=== PATIENT | male | born 1975 | race Caucasian/White ===

== ENCOUNTER 2021-01-02 11:07 | Emergency (ER) | payer MEDICARE, MEDICAID ==
[~2021-01-02] VITALS: Ht 167.6 cm; Wt 90.9 kg
[~2021-01-02 11:07] MED LIST: ACET-890 PO; CHLO500C10 PO; CLA10T PO; DIVA-74 PO; HCTZ25T PO; LEVE500T12 PO; MAGN296S70 PO; PHEN30TA41 PO; POLY17PO10 PO; QUET-1 PO; VENL-190 PO
[2021-01-02 11:36] VITALS: BP 119/80
== END 2021-01-02 15:47 | disposition home or self-care (01) ==
LOC: ER 11:08
DX: K59.00 Constipation, unspecified (principal); Z88.2 Allergy status to sulfonamides; Z79.899 Other long term (current) drug therapy
CPT/HCPCS: 74018; 99283

== ENCOUNTER 2021-04-28 18:07 | Emergency (ER) | payer MEDICARE, MEDICAID ==
[~2021-04-28] VITALS: Ht 167.6 cm; Wt 88.0 kg
[2021-04-28] MEDS ORDERED: iohexol 300mg/ml 100ml inj. ONE (20:01)
[2021-04-28 20:56] LABS: BASOPHILS % (AUTO) 0.5 % (0-1); EOSINOPHILS # (AUTO) 0.1 X10'3 (0-0.9); EOSINOPHILS % (AUTO) 1.8 % (0-6); HEMATOCRIT 41.8 % (42.0-52.0); HEMOGLOBIN 14.7 g/dl (14.0-17.9); LYMPHOCYTES # (AUTO) 2.2 X10'3 (1.1-4.8); LYMPHOCYTES % (AUTO) 38.8 % (21-51); MEAN CORPUSCULAR HEMOGLOBIN 32.8 PG (27.0-31.0); MEAN CORPUSCULAR HGB CONC 35.3 g/dL (33.0-36.5); MEAN CORPUSCULAR VOLUME 92.9 FL (78-98); MEAN PLATELET VOLUME 7.4 FL (7.4-10.4); MONOCYTES # (AUTO) 0.4 X10'3 (0-0.9); MONOCYTES % (AUTO) 7.9 % (2-12); NEUTROPHILS # (AUTO) 2.9 X10'3 (1.8-7.7); PLATELET COUNT 128 X10'3 (140-440); RED CELL DISTRIBUTION WIDTH 13.9 % (11.5-14.5); WHITE BLOOD COUNT 5.6 X10'3 (4.5-11.0)
[2021-04-28 21:10] LABS: ALANINE AMINOTRANSFERASE 13 U/L (12-78); ALBUMIN 2.7 G/DL (3.4-5.0); ALKALINE PHOSPHATASE 39 IU/L (46-116); ANION GAP 4 (8-16); ASPARTATE AMINO TRANSFERASE 10 U/L (10-37); BILIRUBIN,TOTAL 0.2 MG/DL (0.1-1.0); BLOOD UREA NITROGEN 12 MG/DL (7-18); BUN/CREATININE RATIO 17.9 (5.4-32.0); CALCIUM 7.7 MG/DL (8.5-10.1); CHLORIDE 99 MMOL/L (99-107); CREATININE 0.67 MG/DL (0.60-1.10); GLUCOSE 89 MG/DL (70-104); POTASSIUM 3.6 MMOL/L (3.5-5.1); SODIUM 134 MMOL/L (135-145); TOTAL CARBON DIOXIDE 31.5 MMOL/L (24-32); TOTAL PROTEIN 5.4 G/DL (6.4-8.2); eGFR > 90 ML/MIN
[2021-04-28 21:19] LABS: CLARITY,URINE CLEAR (Clear); COLOR,URINE YELLOW (Yellow); GLUCOSE, URINE NEGATIVE (Neg); KETONES,URINE NEGATIVE (Neg); LEUKOCYTE ESTERASE ,URINE NEGATIVE (Neg); NITRITES, URINE NEGATIVE (Neg); OCCULT BLOOD,URINE NEGATIVE (Neg); PH,URINE 7.5 (4.8-8.0); PROTEIN,URINE NEGATIVE (Neg); UROBILINOGEN,URINE 0.2 E.U/dL (0.2-1.0)
[2021-04-28 21:20] LABS: UA COLLECTION TYPE STRAIGHT CATH
[2021-04-28 22:06] VITALS: BP 103/83
== END 2021-04-28 22:08 | disposition home or self-care (01) ==
LOC: ER 18:08
DX: K59.00 Constipation, unspecified (principal); R26.89 Other abnormalities of gait and mobility; R62.50 Unspecified lack of expected normal physiological development in childhood; G43.909 Migraine, unspecified, not intractable, without status migrainosus; Z79.2 Long term (current) use of antibiotics; Z79.899 Other long term (current) drug therapy; Z88.2 Allergy status to sulfonamides
CPT/HCPCS: 36415; 74177; 80053; 81003; 85025; 99285; Q9967

== ENCOUNTER 2022-07-02 10:56 | Emergency (ER) | payer MEDICARE, MEDICAID ==
[~2022-07-02] VITALS: Ht 165.1 cm; Wt 98.2 kg
[~2022-07-02 10:56] MED LIST changes: -PHEN30TA41 PO; +PHEN30TA49 PO
[2022-07-02 10:59] VITALS: BP 141/90
== END 2022-07-02 14:27 | disposition home or self-care (01) ==
LOC: ER 10:56
DX: R63.5 Abnormal weight gain (principal); Z88.2 Allergy status to sulfonamides
CPT/HCPCS: 99282

== ENCOUNTER 2023-12-22 09:14 | Inpatient (IN) | payer MEDICARE, MEDICAID ==
[~2023-12-22] VITALS: Ht 167.6 cm; Wt 96.5 kg
[~2023-12-22 09:14] MED LIST changes: -MAGN296S70 PO; +MAGN296S89 PO
[2023-12-22 09:47] LABS: BASOPHILS % (AUTO) 0.2 % (0-1); EOSINOPHILS % (AUTO) 0.1 % (0-6); HEMOGLOBIN 16.9 g/dl (14.0-17.9); LYMPHOCYTES # (AUTO) 0.4 X10'3 (1.1-4.8); LYMPHOCYTES % (AUTO) 1.8 % (21-51); MEAN CORPUSCULAR HEMOGLOBIN 31.6 PG (27.0-31.0); MEAN CORPUSCULAR HGB CONC 35.2 g/dL (33.0-36.5); MEAN CORPUSCULAR VOLUME 89.9 FL (78-98); MEAN PLATELET VOLUME 6.9 FL (7.4-10.4); MONOCYTES # (AUTO) 2.3 X10'3 (0-0.9); MONOCYTES % (AUTO) 9.8 % (2-12); NEUTROPHILS # (AUTO) 20.4 X10'3 (1.8-7.7); NEUTROPHILS % (AUTO) 88.1 % (42-75); PLATELET COUNT 208 X10'3 (140-440); RED BLOOD COUNT 5.34 X10'6 (4.70-6.10); WHITE BLOOD COUNT 23.1 X10'3 (4.5-11.0)
[2023-12-22] MEDS: normal saline 1000ML IV soln IV ONE ×2 (09:55→16:11)
[2023-12-22 11:31] LABS: ALANINE AMINOTRANSFERASE 14 U/L (12-78); ALBUMIN 3.6 G/DL (3.4-5.0); ALBUMIN/GLOBULIN RATIO 0.9 (1.1-1.5); ALKALINE PHOSPHATASE 58 IU/L (46-116); ANION GAP 14 (8-16); ASPARTATE AMINO TRANSFERASE 9 U/L (10-37); BILIRUBIN,TOTAL 0.3 MG/DL (0.1-1.0); BLOOD UREA NITROGEN 12 MG/DL (7-18); BUN/CREATININE RATIO 13.2 (10.0-20.0); CALCIUM 8.8 MG/DL (8.5-10.1); CHLORIDE 100 MMOL/L (99-107); CREATININE 0.91 MG/DL (0.60-1.10); GLUCOSE 145 MG/DL (70-104); PRO BRAIN NATRIURETIC PEPTIDE 220 PG/ML (0-125); SODIUM 135 MMOL/L (135-145); TOTAL CARBON DIOXIDE 20.8 MMOL/L (24-32); TOTAL PROTEIN 7.6 G/DL (6.4-8.2); eCRCL 89 ML/MIN; eGFR 89 ML/MIN
[2023-12-22 11:44] LABS: POTASSIUM 2.9 MMOL/L (3.5-5.1)
[2023-12-22] MEDS: OLANZapine 5mg rapidly disint. tablet PO ONE (13:04)
[2023-12-22] MEDS ORDERED: acetaminophen 325mg tablet PO PRN (13:15)
[2023-12-22] MEDS ORDERED: ondansetron/PF 4mg/2ml inj IV PRN (13:15)
[2023-12-22] MEDS ORDERED: magnesium Cl slow-release 64mg tablet PO PRN (13:15)
[2023-12-22] MEDS ORDERED: magnesium 4gm in 100ml NS 100 ML IV PRN (13:15)
[2023-12-22] MEDS ORDERED: magnesium 2GM in 50ml NS 50 ML IV PRN (13:15)
[2023-12-22] MEDS ORDERED: potassium Cl 20 mEq SR tablet PO PRN ×2 (13:15)
[2023-12-22 13:26] LABS: APTT 30 SECONDS (22-32); INR 1.1 INR; PROTHROMBIN TIME 11.4 SECONDS (9.0-12.0)
[2023-12-22] MEDS: quetiapine 100mg tablet PO ONE (13:50)
[2023-12-22] MEDS ORDERED: Potassium Cl inj 20 MEQ in normal saline 1000ml 990 ML IV SCH (13:50)
[2023-12-22] MEDS: CefTRIAXone 2gm/D5W 50ml BAG 50 ML IV ONE (15:59)
[2023-12-22] MEDS: potassium CL 10mEq/100ml bag 100 ML IV ONE (16:04)
[2023-12-22] MEDS: magnesium oxide 400mg tablet PO ONE (16:21)
[2023-12-22] MEDS: potassium Cl 20 mEq SR tablet PO ONE (16:21)
[2023-12-22] MEDS ORDERED: POTA-192 PO (16:41)
[2023-12-22] MEDS ORDERED: DIVA-76 PO (16:41)
[2023-12-22] MEDS ORDERED: MAGN400O6 PO (16:41)
[2023-12-22] MEDS ORDERED: LACT1CAP65 PO (16:41)
[2023-12-22] MEDS ORDERED: FURO-150 PO (16:41)
[2023-12-22] MEDS ORDERED: QUET-1 PO ×2 (16:41)
[2023-12-22] MEDS ORDERED: DOCU-395 PO (16:41)
[2023-12-22] MEDS ORDERED: DIVA125T31 PO (16:41)
[2023-12-22] MEDS: CefTRIAXone/D5W-Rocephin 1gm 50 ML IV ONE (17:37)
[2023-12-22] MEDS: azithromycin/NS 500mg/250ml 250 ML IV ONE (18:09)
[2023-12-22] MEDS: acetaminophen 325mg tablet PO SCH (18:34)
[2023-12-22 19:32] VITALS: BP 135/78; PULSE 86; RESP 20; TEMP 96.6; O2SAT 96
[2023-12-22] MEDS: cefepime 1GM/NS ADD-VANTAGE 100 ML IV SCH (20:00)
[2023-12-22] MEDS: magnesium 2GM in 50ml NS 50 ML IV ONE (21:08)
[2023-12-22] MEDS: enoxaparin 40mg/0.4ml syringe SQ SCH (21:08)
[2023-12-22 22:00] VITALS: BP 111/60; PULSE 87; RESP 16; TEMP 98.2; O2SAT 98
[2023-12-23] MEDS: potassium Cl 40MEQ/1/2NS 520ml 520 ML IV PRN (00:34)
[2023-12-23 02:00] VITALS: BP 98/51; PULSE 90; RESP 20; TEMP 97.5; O2SAT 96
[2023-12-23] MEDS: potassium Cl 20mEq in NS 1,000 ML IV SCH (03:43)
[2023-12-23 06:08] LABS: BASOPHILS % (AUTO) 0.1 % (0-1); EOSINOPHILS % (AUTO) 0 % (0-6); HEMATOCRIT 40.4 % (42.0-52.0); LYMPHOCYTES # (AUTO) 1.5 X10'3 (1.1-4.8); LYMPHOCYTES % (AUTO) 5.7 % (21-51); MEAN CORPUSCULAR HEMOGLOBIN 31.4 PG (27.0-31.0); MEAN CORPUSCULAR HGB CONC 34.7 g/dL (33.0-36.5); MEAN CORPUSCULAR VOLUME 90.5 FL (78-98); MEAN PLATELET VOLUME 6.8 FL (7.4-10.4); MONOCYTES # (AUTO) 2.4 X10'3 (0-0.9); MONOCYTES % (AUTO) 9.5 % (2-12); NEUTROPHILS # (AUTO) 21.7 X10'3 (1.8-7.7); NEUTROPHILS % (AUTO) 84.7 % (42-75); PLATELET COUNT 198 X10'3 (140-440); RED BLOOD COUNT 4.47 X10'6 (4.70-6.10); RED CELL DISTRIBUTION WIDTH 13.9 % (11.5-14.5)
[2023-12-23 06:11] LABS: WHITE BLOOD COUNT 25.7 X10'3 (4.5-11.0)
[2023-12-23 06:19] LABS: ALANINE AMINOTRANSFERASE 8 U/L (12-78); ALBUMIN 2.7 G/DL (3.4-5.0); ALBUMIN/GLOBULIN RATIO 0.8 (1.1-1.5); ALKALINE PHOSPHATASE 49 IU/L (46-116); ANION GAP 8 (8-16); ASPARTATE AMINO TRANSFERASE 8 U/L (10-37); BILIRUBIN,TOTAL 0.4 MG/DL (0.1-1.0); BLOOD UREA NITROGEN 12 MG/DL (7-18); BUN/CREATININE RATIO 18.2 (10.0-20.0); CALCIUM 7.7 MG/DL (8.5-10.1); CHLORIDE 106 MMOL/L (99-107); CREATININE 0.66 MG/DL (0.60-1.10); GLUCOSE 97 MG/DL (70-104); POTASSIUM 3.9 MMOL/L (3.5-5.1); SODIUM 138 MMOL/L (135-145); TOTAL CARBON DIOXIDE 24.4 MMOL/L (24-32); TOTAL PROTEIN 6.3 G/DL (6.4-8.2); eCRCL 122 ML/MIN; eGFR > 90 ML/MIN
[2023-12-23 07:25] LABS: TOTAL CELLS COUNTED 100
[2023-12-23 07:26] LABS: PLATELET ESTIMATE NORMAL
[2023-12-23 07:27] LABS: SMUDGE CELLS 1+
[2023-12-23] MEDS: azithromycin/NS 500mg/250ml 250 ML IV SCH (08:00)
[2023-12-23 12:08] LABS: BASOPHILS % (AUTO) 0.1 % (0-1); EOSINOPHILS % (AUTO) 0.1 % (0-6); HEMATOCRIT 41.5 % (42.0-52.0); HEMOGLOBIN 14.1 g/dl (14.0-17.9); LYMPHOCYTES # (AUTO) 1.4 X10'3 (1.1-4.8); LYMPHOCYTES % (AUTO) 6.1 % (21-51); MEAN CORPUSCULAR HGB CONC 33.9 g/dL (33.0-36.5); MEAN CORPUSCULAR VOLUME 91.6 FL (78-98); MEAN PLATELET VOLUME 6.7 FL (7.4-10.4); NEUTROPHILS # (AUTO) 19.1 X10'3 (1.8-7.7); NEUTROPHILS % (AUTO) 84.7 % (42-75); PLATELET COUNT 204 X10'3 (140-440); RED BLOOD COUNT 4.53 X10'6 (4.70-6.10); WHITE BLOOD COUNT 22.6 X10'3 (4.5-11.0)
[2023-12-23] MEDS ORDERED: iohexol 300mg/ml 100ml inj. ONE (13:05)
[2023-12-23] MEDS: LORazepam 2 mg/ml vial IV PRN (15:10)
[2023-12-23] MEDS: normal saline 1000ml 1,000 ML IV SCH (17:21)
[2023-12-23 18:00] VITALS: BP 149/79; PULSE 85; RESP 20; TEMP 97.9; O2SAT 95
[2023-12-23] MEDS ORDERED: PHENOBARBITAL 64.8 MG PO SCH ×2 (20:00→20:46)
[2023-12-23] MEDS: quetiapine 100mg tablet PO SCH (21:17)
[2023-12-23] MEDS: LEVETIRACETAM 1500 MG PO SCH (21:17)
[2023-12-23] MEDS: PHENOBARBITAL 64.8 MG PO SCH (21:30)
[2023-12-23 22:00] VITALS: BP 126/78; PULSE 100; RESP 15; TEMP 100.1; O2SAT 96
[2023-12-24] VITALS (7 sets, daily range): BP systolic 94–120; BP diastolic 55–78; PULSE 75–110; RESP 15–20; TEMP 97.6–99.4; O2SAT 94–97
[2023-12-24] MEDS: divalproex sodium 500mg tablet.DR PO SCH (08:53)
[2023-12-24] MEDS: lactobacillus rhamnosus 10,000 MMU CELLS/CAPSULE PO SCH (08:54)
[2023-12-24 09:29] LABS: BASOPHILS % (AUTO) 0.2 % (0-1); EOSINOPHILS # (AUTO) 0.1 X10'3 (0-0.9); EOSINOPHILS % (AUTO) 0.6 % (0-6); HEMATOCRIT 38.5 % (42.0-52.0); HEMOGLOBIN 12.9 g/dl (14.0-17.9); LYMPHOCYTES # (AUTO) 1.8 X10'3 (1.1-4.8); LYMPHOCYTES % (AUTO) 13.7 % (21-51); MEAN CORPUSCULAR HEMOGLOBIN 30.8 PG (27.0-31.0); MEAN CORPUSCULAR HGB CONC 33.5 g/dL (33.0-36.5); MEAN CORPUSCULAR VOLUME 91.8 FL (78-98); MEAN PLATELET VOLUME 6.6 FL (7.4-10.4); MONOCYTES # (AUTO) 1.3 X10'3 (0-0.9); MONOCYTES % (AUTO) 9.7 % (2-12); NEUTROPHILS # (AUTO) 9.8 X10'3 (1.8-7.7); NEUTROPHILS % (AUTO) 75.8 % (42-75); PLATELET COUNT 192 X10'3 (140-440)
[2023-12-24 09:44] LABS: ALANINE AMINOTRANSFERASE 11 U/L (12-78); ALBUMIN 2.5 G/DL (3.4-5.0); ALBUMIN/GLOBULIN RATIO 0.7 (1.1-1.5); ALKALINE PHOSPHATASE 45 IU/L (46-116); ANION GAP 8 (8-16); ASPARTATE AMINO TRANSFERASE 6 U/L (10-37); BILIRUBIN,TOTAL 0.3 MG/DL (0.1-1.0); BLOOD UREA NITROGEN 16 MG/DL (7-18); BUN/CREATININE RATIO 25.4 (10.0-20.0); CALCIUM 7.8 MG/DL (8.5-10.1); CREATININE 0.63 MG/DL (0.60-1.10); GLUCOSE 93 MG/DL (70-104); SODIUM 146 MMOL/L (135-145); TOTAL CARBON DIOXIDE 23.8 MMOL/L (24-32); TOTAL PROTEIN 6.1 G/DL (6.4-8.2); eCRCL 128 ML/MIN; eGFR > 90 ML/MIN
[2023-12-24 11:14] LABS: CHLORIDE 114 MMOL/L (99-107)
[2023-12-24] MEDS ORDERED: LORazepam 1 MG tablet PO PRN (17:20)
[2023-12-25] VITALS (10 sets, daily range): BP systolic 113–137; BP diastolic 69–86; PULSE 72–90; RESP 12–18; TEMP 97.7–98.4; O2SAT 96–98
[2023-12-25 07:05] LABS: BASOPHILS # (AUTO) 0.1 X10'3 (0-0.2); EOSINOPHILS # (AUTO) 0.3 X10'3 (0-0.9); EOSINOPHILS % (AUTO) 3.4 % (0-6); HEMATOCRIT 37.9 % (42.0-52.0); HEMOGLOBIN 13.1 g/dl (14.0-17.9); LYMPHOCYTES % (AUTO) 13.1 % (21-51); MEAN CORPUSCULAR HEMOGLOBIN 31.9 PG (27.0-31.0); MEAN CORPUSCULAR HGB CONC 34.5 g/dL (33.0-36.5); MEAN CORPUSCULAR VOLUME 92.3 FL (78-98); MONOCYTES # (AUTO) 0.8 X10'3 (0-0.9); MONOCYTES % (AUTO) 10.4 % (2-12); NEUTROPHILS # (AUTO) 5.8 X10'3 (1.8-7.7); NEUTROPHILS % (AUTO) 72.1 % (42-75); PLATELET COUNT 188 X10'3 (140-440); RED CELL DISTRIBUTION WIDTH 14.3 % (11.5-14.5)
[2023-12-25 07:23] LABS: ALANINE AMINOTRANSFERASE 10 U/L (12-78); ALBUMIN 2.8 G/DL (3.4-5.0); ALBUMIN/GLOBULIN RATIO 0.7 (1.1-1.5); ALKALINE PHOSPHATASE 49 IU/L (46-116); ANION GAP 11 (8-16); ASPARTATE AMINO TRANSFERASE 10 U/L (10-37); BILIRUBIN,TOTAL 0.3 MG/DL (0.1-1.0); BLOOD UREA NITROGEN 15 MG/DL (7-18); BUN/CREATININE RATIO 23.8 (10.0-20.0); CALCIUM 8.5 MG/DL (8.5-10.1); CHLORIDE 112 MMOL/L (99-107); CREATININE 0.63 MG/DL (0.60-1.10); GLUCOSE 95 MG/DL (70-104); POTASSIUM 3.9 MMOL/L (3.5-5.1); SODIUM 145 MMOL/L (135-145); TOTAL CARBON DIOXIDE 22.4 MMOL/L (24-32); TOTAL PROTEIN 6.9 G/DL (6.4-8.2); eCRCL 128 ML/MIN; eGFR > 90 ML/MIN
[2023-12-26 02:00] VITALS: BP 141/81; PULSE 71; RESP 14; TEMP 97.5; O2SAT 99
[2023-12-26 06:00] VITALS: BP 131/86; PULSE 79; RESP 16; TEMP 98.5; O2SAT 97
[2023-12-26 07:52] LABS: BASOPHILS # (AUTO) 0.1 X10'3 (0-0.2); BASOPHILS % (AUTO) 0.6 % (0-1); EOSINOPHILS # (AUTO) 0.2 X10'3 (0-0.9); EOSINOPHILS % (AUTO) 2.6 % (0-6); HEMATOCRIT 38.6 % (42.0-52.0); HEMOGLOBIN 13.4 g/dl (14.0-17.9); LYMPHOCYTES # (AUTO) 1.1 X10'3 (1.1-4.8); LYMPHOCYTES % (AUTO) 12.1 % (21-51); MEAN CORPUSCULAR HEMOGLOBIN 31.5 PG (27.0-31.0); MEAN CORPUSCULAR HGB CONC 34.7 g/dL (33.0-36.5); MEAN CORPUSCULAR VOLUME 90.7 FL (78-98); MEAN PLATELET VOLUME 6.4 FL (7.4-10.4); MONOCYTES # (AUTO) 0.8 X10'3 (0-0.9); MONOCYTES % (AUTO) 8.7 % (2-12); PLATELET COUNT 210 X10'3 (140-440); RED BLOOD COUNT 4.26 X10'6 (4.70-6.10); RED CELL DISTRIBUTION WIDTH 13.7 % (11.5-14.5); WHITE BLOOD COUNT 9.2 X10'3 (4.5-11.0)
[2023-12-26 08:00] VITALS: RESP 16; O2SAT 97
[2023-12-26 08:09] LABS: ALANINE AMINOTRANSFERASE 13 U/L (12-78); ALBUMIN 2.8 G/DL (3.4-5.0); ALBUMIN/GLOBULIN RATIO 0.7 (1.1-1.5); ALKALINE PHOSPHATASE 49 IU/L (46-116); ANION GAP 12 (8-16); ASPARTATE AMINO TRANSFERASE 7 U/L (10-37); BILIRUBIN,TOTAL 0.3 MG/DL (0.1-1.0); BLOOD UREA NITROGEN 10 MG/DL (7-18); BUN/CREATININE RATIO 16.7 (10.0-20.0); CALCIUM 8.4 MG/DL (8.5-10.1); CHLORIDE 108 MMOL/L (99-107); GLUCOSE 94 MG/DL (70-104); POTASSIUM 3.7 MMOL/L (3.5-5.1); SODIUM 144 MMOL/L (135-145); TOTAL CARBON DIOXIDE 24.2 MMOL/L (24-32); TOTAL PROTEIN 6.6 G/DL (6.4-8.2); eCRCL 134 ML/MIN; eGFR > 90 ML/MIN
[2023-12-26] MEDS: azithromycin 250mg tablet PO SCH (08:11)
[2023-12-26] MEDS: divalproex sodium 500mg tablet.DR PO SCH (08:45)
[2023-12-26] MEDS: quetiapine 100mg tablet PO SCH (08:45)
[2023-12-26] MEDS ORDERED: DIVA-76 PO (09:13)
[2023-12-26 11:00] VITALS: BP 145/77; PULSE 82; RESP 27; TEMP 98.3; O2SAT 97
[2023-12-26] MEDS: polyethylene glycol 3350 17gm powd pack PO SCH (11:46)
[2023-12-26] MEDS: furosemide 20MG tablet PO SCH (11:46)
[2023-12-26] MEDS: loratadine 10mg tablet PO SCH (11:46)
[2023-12-26] MEDS: HYDROchlorothiazide 12.5mg capsule PO SCH (11:47)
[2023-12-26] MEDS: potassium Cl 20 mEq SR tablet PO SCH (11:48)
[2023-12-26] MEDS ORDERED: LEVO-65 PO (13:56)
[2023-12-26] MEDS ORDERED: docusate sod 250mg capsule PO SCH (20:00)
== END 2023-12-26 15:41 | disposition home or self-care (01) | DRG 871 ==
LOC: ER 09:15 → ED HOLD 13:19 → EDBEDREQ 18:52 → PCU 3S 19:35
PROVIDERS: ADMIT Internal Medicine; ATTEND Internal Medicine
PROC: BW211ZZ Computerized Tomography (CT Scan) of Abdomen and Pelvis using Low Osmolar Contrast (ICD-10-PCS; principal; 2023-12-23)
DX: A41.9 Sepsis, unspecified organism (principal); J69.0 Pneumonitis due to inhalation of food and vomit; E83.42 Hypomagnesemia; Z66 Do not resuscitate; E87.6 Hypokalemia; Z20.822 Contact with and (suspected) exposure to COVID-19; F32.A Depression, unspecified; G80.9 Cerebral palsy, unspecified; G40.909 Epilepsy, unspecified, not intractable, without status epilepticus; R13.12 Dysphagia, oropharyngeal phase; F43.10 Post-traumatic stress disorder, unspecified; I10 Essential (primary) hypertension; F42.9 Obsessive-compulsive disorder, unspecified; I87.2 Venous insufficiency (chronic) (peripheral); Z79.899 Other long term (current) drug therapy; Z88.2 Allergy status to sulfonamides
CPT/HCPCS: 36415; 71045; 71260; 74177; 80053; 83605; 83735; 83880; 84145; 84484; 85007; 85025; 85610; 85651; 85730; 87040; 87081; 87811; 92508; 92616; 93005; 93306; 97116; 97161; 97530; 99285; A4349; A6250; A6258; G0378; J0456; J0692; J0696; J1650; J2060; J3475; J3480; J3490; J7030; J7040; Q9967

== ENCOUNTER 2024-07-22 10:44 | Emergency (ER) | payer MEDICARE, MEDICAID ==
[~2024-07-22] VITALS: Ht 172.7 cm; Wt 81.8 kg
[2024-07-22 10:44] VITALS: BP 134/82; PULSE 74; TEMP 98.8; O2SAT 94
[~2024-07-22 10:44] MED LIST changes: -CHLO500C10 PO; -DIVA-74 PO; +DIVA-76 PO; +DOCU-395 PO; +FURO-150 PO; +LACT1CAP65 PO; -MAGN296S89 PO; +POTA-192 PO; -VENL-190 PO
[2024-07-22] MEDS: ketorolac trometh 30MG/ML vial 30 MG/ML VIAL IM ONE (13:02)
[2024-07-22] MEDS: dexamethasone sod phosphate 10mg/ml inj IM STA (13:02)
[2024-07-22] MEDS ORDERED: PROM118S5 PO (13:37)
[2024-07-22] MEDS ORDERED: PRED20TA PO (13:37)
[2024-07-22 13:39] VITALS: RESP 16
== END 2024-07-22 13:47 | disposition home or self-care (01) ==
LOC: ER 10:44
DX: U07.1 COVID-19 (principal); Z88.2 Allergy status to sulfonamides; Z79.1 Long term (current) use of non-steroidal anti-inflammatories (NSAID); Z79.899 Other long term (current) drug therapy
CPT/HCPCS: 71045; 96372; 99284; J1100; J1885

== ENCOUNTER 2024-10-15 15:15 | Outpatient (CLI) | payer MEDICARE, MEDICAID ==
[2024-10-15 15:59] LABS: BILIRUBIN,URINE NEGATIVE (Neg); CLARITY,URINE CLEAR (Clear); COLOR,URINE STRAW (Yellow); GLUCOSE, URINE NEGATIVE (Neg); KETONES,URINE NEGATIVE (Neg); LEUKOCYTE ESTERASE ,URINE NEGATIVE (Neg); NITRITES, URINE NEGATIVE (Neg); OCCULT BLOOD,URINE TRACE-INTACT (Neg); PROTEIN,URINE NEGATIVE (Neg); UROBILINOGEN,URINE 0.2 E.U/dL (0.2-1.0)
[2024-10-15 16:01] LABS: UA COLLECTION TYPE NON-SPECIFIED
[2024-10-15 16:21] LABS: BACTERIA,URINE NONE SEEN /HPF (Neg); MUCUS STRANDS NONE SEEN /LPF (Neg); RBC,URINE 0-2 /HPF (0-2); SQUAMOUS EPITHELIAL CELL,UR NONE SEEN /LPF (FEW); WBC,URINE NONE SEEN /HPF (0-4)
== END 2024-10-15 23:59 | disposition home or self-care (01) ==
LOC: LAB SPEC 15:15
PROVIDERS: ATTEND Family Medicine
DX: R54 Age-related physical debility (principal)
CPT/HCPCS: 81001

== ENCOUNTER 2025-01-15 08:46 | Emergency (ER) | payer MEDICARE, MEDICAID ==
[~2025-01-15] VITALS: Ht 172.7 cm; Wt 97.0 kg
[2025-01-15 08:49] VITALS: BP 112/77; PULSE 88; RESP 18; TEMP 96.3; O2SAT 94
== END 2025-01-15 11:45 | disposition home or self-care (01) ==
LOC: ER 08:46
DX: R51.9 Headache, unspecified (principal); I51.7 Cardiomegaly; Z88.2 Allergy status to sulfonamides; Z88.8 Allergy status to other drugs, medicaments and biological substances
CPT/HCPCS: 71046; 87502; 87503; 99284